=== PATIENT | female | born 1945 | race Caucasian/White ===

== ENCOUNTER → 2021-05-09 | Outpatient (CLI) | payer MEDICARE, OTHER ==
--- NOTE | 2021-05-17 12:58 | RAD ---
BILATERAL DIGITAL SCREENING 2-D AND 3-D MAMMOGRAM INDICATION: Routine screening. COMPARISON: Outside bilateral screening mammogram on January 08, 2020, outside right breast ultraso und on January 15, 2020, outside evening mammogram, right breast only cc view dated July 23, 2018 Interpretation was made using CAD. FINDINGS: Breast Density: There are scattered areas of fibroglandular density. RIGHT BREAST: There is an oval circumscribed 0.6 cm mass benign o'clock location, 2 cm lateral to the nipple line in the middle depth of the breast. Ultrasound is recommended. Of note, there are other o tiffani circumscribed stable masses in this region of the breast. No suspicious calcifications or areas o f distortion are seen. LEFT BREAST: There are multiple tiny oval circumscribed masses in the central breast. Given the diffe rence in technique and positioning these are considered unchanged and benign in appearance. No suspic ious masses, calcifications or areas of architectural distortion are seen. IMPRESSION: 1. Indeterminate right breast mass. Ultrasound is recommended. 2. No imaging evidence of malignancy in the left breast. ASSESSMENT: BI-RADS 0. Incomplete Assessment. Additional imaging is necessary. RECOMMENDATION: Right breast ultrasound. The facility will notify the patient of the results via mail . Patient information will be entered into the mammography reminder system with a target recall date for the next mammogram. A reminder letter will be generated by the facility. Electronically signed by: Madison Arambula MD (05/17/2021 12:55 PM) [id number]
== END ==
LOC: MAMMO 09:51
PROVIDERS: ATTEND Internal Medicine
DX: Z12.31 Encounter for screening mammogram for malignant neoplasm of breast (principal)
CPT/HCPCS: 77063; 77067

== ENCOUNTER → 2021-05-24 | Outpatient (CLI) | payer MEDICARE, OTHER ==
--- NOTE | 2021-05-24 13:42 | RAD ---
EXAMINATION: Right breast ultrasound INDICATION: Patient presents with sonographic follow-up evaluation of circumscribed oval right breast mass. COMPARISON: Mammogram from 05/09/2021 FINDINGS: Ultrasound shows a circumscribed oval hypoechoic mass at the 9:00 position, 2 cm deep to th e nipple measuring 6 x 5 x 4 mm in maximal diameter. There is subtle increase in through transmission of sound with no suspicious vascularity. This is consistent with a benign cyst and correlates with t he mammographic findings. No suspicious axillary lymph nodes. IMPRESSION: BI-RADS 2. Benign findings. Continue annual screening mammography. Electronically signed by: Valentin Simeon DO (05/24/2021 1:40 PM) [id number]
== END ==
LOC: US 12:57
PROVIDERS: ATTEND Internal Medicine
DX: N63.41 Unspecified lump in right breast, subareolar (principal); R92.2 Inconclusive mammogram
CPT/HCPCS: 76642